=== PATIENT | female | born 1945 | race Caucasian/White ===

== ENCOUNTER 2019-12-26 07:42 | Day surgery (SDC) | payer MEDICARE, OTHER ==
[~2019-12-26] VITALS: Ht 152.4 cm; Wt 82.5 kg
[2019-12-26] VITALS (7 sets, daily range): BP systolic 131–162; BP diastolic 62–85
[2019-12-26] MEDS ORDERED: diphenhydrAMINE 25mg capsule PO ONE (08:45)
[2019-12-26] MEDS ORDERED: acetaminophen 325mg tablet PO ONE (08:45)
[2019-12-26] MEDS ORDERED: dexamethasone sod phosphate 4mg/ml inj. IV ONE (08:45)
== END 2019-12-26 14:00 | disposition home or self-care (01) ==
LOC: MED 3N 07:42 → U 07:42
PROVIDERS: ATTEND Internal Medicine Hematology & Oncology
DX: D64.9 Anemia, unspecified (principal)
CPT/HCPCS: 36415; 36430; 86885; 86900; 86901; 86920; 86945; J1100; P9016; Q0163

== ENCOUNTER 2020-02-09 08:11 | Observation (INO) | payer MEDICARE, OTHER ==
[2020-01-30 16:41] LABS: BASOPHILS % (AUTO) 0.6 % (0-1); EOSINOPHILS # (AUTO) 0.2 X10'3 (0-0.9); LYMPHOCYTES # (AUTO) 1.3 X10'3 (1.1-4.8); LYMPHOCYTES % (AUTO) 24.1 % (21-51); MEAN CORPUSCULAR HEMOGLOBIN 30.2 PG (27.0-31.0); MEAN CORPUSCULAR HGB CONC 32.8 g/dL (33.0-36.5); MEAN CORPUSCULAR VOLUME 91.8 FL (78-98); MEAN PLATELET VOLUME 8.4 FL (7.4-10.4); MONOCYTES # (AUTO) 0.5 X10'3 (0-0.9); MONOCYTES % (AUTO) 10.3 % (2-12); NEUTROPHILS # (AUTO) 3.3 X10'3 (1.8-7.7); PRE OP HEMATOCRIT 32.9 % (35.0-45.0); PRE OP PLATELET COUNT 201 X10'3 (140-440); RED BLOOD COUNT 3.58 X10'6 (4.20-5.60); RED CELL DISTRIBUTION WIDTH 14.5 % (11.5-14.5)
[2020-01-30 16:46] LABS: PRE OP HEMOGLOBIN 10.8 g/dL (12.0-16.0)
[2020-01-30 16:57] LABS: ALBUMIN 3.7 G/DL (3.4-5.0); ALBUMIN/GLOBULIN RATIO 1.1 (1.1-1.5); ALKALINE PHOSPHATASE 150 IU/L (46-116); BLOOD UREA NITROGEN 14 MG/DL (7-18); BUN/CREATININE RATIO 13.7 (6.6-38.0); CALCIUM 9.1 MG/DL (8.5-10.1); CHLORIDE 107 MMOL/L (99-107); CREATININE 1.02 MG/DL (0.40-0.90); PRE OP ALT 30 U/L (30-65); PRE OP ANION GAP 6 (8-16); PRE OP AST 22 U/L (10-37); PRE OP BILIRUB, TOTAL 0.3 MG/DL (0.0-1.0); PRE OP GLUCOSE 100 MG/DL (70-104); PRE OP POTASSIUM 4.1 MMOL/L (3.4-5.1); PRE OP SODIUM 143 MMOL/L (135-145); TOTAL CARBON DIOXIDE 29.6 MMOL/L (24-32); eGFR 53 ML/MIN
[2020-02-09] VITALS (17 sets, daily range): BP systolic 129–219; BP diastolic 53–92
[~2020-02-09] VITALS: Ht 152.4 cm; Wt 83.3 kg
[~2020-02-09 08:11] MED LIST: ACET-1025 PO; ALBU8.5H8 INH; AMLO5TAB16 PO; ASPI-611 PO; BUPR300T53 PO; CARV3.12 PO; CLOP75TA15 PO; DOCUMENT DATE & TIME OF BETA-BLOCKER PO ONE; ESTR10TA9 PO; HYDR-4383 PO; HYDR200T80 PO; IRBE300T18 PO; LEVO100T PO; LIDOcaine 2% (20mg/ml) 5ml vial ONE; MESSAGE TO NURSING PO ONE; METF500T PO; PHEN99.5 PO; PRAV20TA4 PO; TIZA4TAB11 PO; ZOLP5TAB2 PO; albuterol 2.5 MG/3 ML nebule NEB ONE; cefazolin/dext.iso 2gm/50ml 50 ML IV ONE; famotidine 20mg tablet PO ONE; fentaNYL/PF 50MCG/1 ML 2ML syringe ONE; midazolam 2 mg/2 ml injection ONE; propofol inj 20 ML IV ONE; ringers solution, lacted 1,000 ML IV SCH
[2020-02-09] MEDS ORDERED: vancomycin/NS 1 GM ADD-VANTAGE 250 ML IV ONE (09:30)
[2020-02-09] MEDS ORDERED: bacitracin 15gm ointment TP ONE (10:06)
[2020-02-09] MEDS ORDERED: BUPIVAcaine/PF 2.5 mg/ml (0.25%) 30ml vial ONE (10:06)
[2020-02-09] MEDS ORDERED: ringers solution, lacted 1,000 ML IV SCH (10:24)
[2020-02-09] MEDS ORDERED: proCHLORperazine 10 MG/2 ml inj IV PRN (10:25)
[2020-02-09] MEDS ORDERED: fentaNYL/PF 50MCG/1 ML 2ML syringe IV PRN ×2 (10:25)
[2020-02-09] MEDS ORDERED: HYDROmorphone inj. 0.5 MG/0.5 ML DISP.SYRIN IV PRN ×2 (10:25)
[2020-02-09] MEDS ORDERED: ondansetron/PF 4mg/2ml inj IV PRN (10:25)
[2020-02-09] MEDS ORDERED: meperidine/PF 25mg/ml syringe IV PRN (10:25)
[2020-02-09] MEDS ORDERED: acetaminophen 1,000mg/100ml IV 100 ML IV PRN (10:25)
[2020-02-09] MEDS ORDERED: sevoflurane 250ml liquid IH ONE (10:31)
[2020-02-09] MEDS ORDERED: fentaNYL/PF 50MCG/1 ML 2ML syringe ONE (10:39)
[2020-02-09] MEDS ORDERED: ondansetron/PF 4mg/2ml inj ONE (10:53)
[2020-02-09] MEDS ORDERED: midazolam 2 mg/2 ml injection ONE (10:53)
[2020-02-09] MEDS ORDERED: LIDOcaine 2% (20mg/ml) 5ml vial ONE (10:53)
[2020-02-09] MEDS ORDERED: dexamethasone sod phosphate 4mg/ml inj. ONE (10:53)
[2020-02-09] MEDS ORDERED: propofol inj 20 ML IV ONE (10:53)
[2020-02-09] MEDS ORDERED: 0.9 % SODIUM CHLORIDE 10 ML VIAL ONE (11:00)
[2020-02-09] MEDS ORDERED: vancomycin 1,000mg inj ONE (11:00)
[2020-02-09] MEDS ORDERED: povidone-iodine 10% topical ointment 28.4gm TP ONE (11:50)
--- NOTE | 2020-02-09 12:06 | NUR ---
Received from OR via , accompanied by Anesthesiologist DR VILA and report given by Anesthesiolgist. AWAKENS TO VOICE. VITALS STABLE. DRESSING WITH SM AMNT RED DRAINAGE NOTED. YESSICA PAIN.
[2020-02-09] MEDS ORDERED: acetaminophen 325mg tablet PO PRN (12:50)
[2020-02-09] MEDS ORDERED: phenazopyridine 100mg tablet PO PRN (12:50)
[2020-02-09] MEDS ORDERED: HYDROcodone/acetaminophen 5mg/325mg tablet PO PRN ×2 (12:50→14:05)
[2020-02-09] MEDS ORDERED: albuterol 2.5 MG/3 ML nebule NEB PRN (12:50)
--- NOTE | 2020-02-09 12:59 | NUR ---
received report from Augustus SANCHEZ
--- NOTE | 2020-02-09 13:06 | NUR ---
Report called to receiving nurse. Transferred via [facility] . Special Issues communicated to receiving nurse. AWAKE AND ORIENTED. VITALS STABLE. DRESSING REMAINS THE SAME. YESSICA PAIN. TO ORTHOP RM 4020S AT THIS TIME.
[2020-02-09] MEDS: normal saline 1000ml 1,000 ML IV SCH (15:08)
[2020-02-09] MEDS: HYDROcodone/acetaminophen 5mg/325mg tablet PO PRN ×2 (15:47→22:05)
--- NOTE | 2020-02-09 18:53 | NUR ---
Problems reprioritized. Patient report given, questions answered & plan of care reviewed with Pat RN.
[2020-02-09] MEDS: hydroxychloroquine 200mg tablet PO SCH (20:00)
[2020-02-09] MEDS: carVEDilol 3.125mg tablet PO SCH (20:00)
[2020-02-09] MEDS ORDERED: metFORMIN 500mg tablet PO SCH (21:00)
[2020-02-09] MEDS ORDERED: tizanidine 4mg tablet PO SCH (21:00)
[2020-02-09] MEDS ORDERED: zolpidem 5mg tablet PO SCH (21:00)
--- NOTE | 2020-02-09 21:00 | NUR ---
states she is a difficult start for IV's; refuses to have PIV replaced; states she was told to bring her meds in; states she already took the coreg & plaquenel; denies she has any other meds with her; educated she is not to take her home meds when admitted to the hospital
[2020-02-10 02:00] VITALS: BP 134/65
[2020-02-10] MEDS: normal saline 1000ml 1,000 ML IV SCH ×3 (04:09→10:35)
[2020-02-10] MEDS: HYDROcodone/acetaminophen 5mg/325mg tablet PO PRN ×2 (04:19→10:41)
[2020-02-10 06:00] VITALS: BP 99/37
[2020-02-10 06:32] LABS: BASOPHILS % (AUTO) 0.2 % (0-1); EOSINOPHILS % (AUTO) 0.1 % (0-6); HEMATOCRIT 31.1 % (35.0-45.0); HEMOGLOBIN 10.3 g/dl (12.0-16.0); LYMPHOCYTES # (AUTO) 1.3 X10'3 (1.1-4.8); LYMPHOCYTES % (AUTO) 17.4 % (21-51); MEAN CORPUSCULAR HGB CONC 33.1 g/dL (33.0-36.5); MEAN CORPUSCULAR VOLUME 93.7 FL (78-98); MEAN PLATELET VOLUME 8.5 FL (7.4-10.4); MONOCYTES # (AUTO) 0.9 X10'3 (0-0.9); MONOCYTES % (AUTO) 11.5 % (2-12); NEUTROPHILS # (AUTO) 5.4 X10'3 (1.8-7.7); NEUTROPHILS % (AUTO) 70.8 % (42-75); PLATELET COUNT 184 X10'3 (140-440); RED BLOOD COUNT 3.32 X10'6 (4.20-5.60); RED CELL DISTRIBUTION WIDTH 14.5 % (11.5-14.5); WHITE BLOOD COUNT 7.7 X10'3 (4.5-11.0)
[2020-02-10 06:43] LABS: ALBUMIN 3.3 G/DL (3.4-5.0); ANION GAP 7 (8-16); BLOOD UREA NITROGEN 17 MG/DL (7-18); BUN/CREATININE RATIO 11.6 (6.6-38.0); CALCIUM 8.9 MG/DL (8.5-10.1); CHLORIDE 107 MMOL/L (99-107); CREATININE 1.46 MG/DL (0.40-0.90); GLUCOSE 102 MG/DL (70-104); POTASSIUM 4.1 MMOL/L (3.5-5.1); SODIUM 142 MMOL/L (135-145); TOTAL CARBON DIOXIDE 27.8 MMOL/L (24-32); eGFR 35 ML/MIN
[2020-02-10 06:53] LABS: HEMOGLOBIN A1C 5.6 % (4.5-6.2)
[2020-02-10] MEDS ORDERED: clopidogrel 75mg tablet PO SCH (08:00)
[2020-02-10] MEDS ORDERED: atorvastatin 10mg tablet PO SCH (08:00)
[2020-02-10] MEDS ORDERED: buPROPion SR 150mg tablet PO SCH (08:00)
[2020-02-10] MEDS ORDERED: aspirin 81mg tablet.DR PO SCH (08:00)
[2020-02-10] MEDS ORDERED: amLODIPine 5mg tablet PO SCH (08:00)
[2020-02-10] MEDS ORDERED: levoTHYROXINE 100mcg tablet PO SCH (08:00)
[2020-02-10] MEDS ORDERED: losartan 50mg tablet PO SCH (08:00)
--- NOTE | 2020-02-10 09:55 | NUR ---
DM consult: Pt with A1c 5.6%, DM education not warranted at this time. Will continue to follow. Addendum: 02/10/20 at [address] Amended: Links added.
[2020-02-10] MEDS: carVEDilol 3.125mg tablet PO SCH (10:34)
[2020-02-10] MEDS: hydroxychloroquine 200mg tablet PO SCH (10:37)
[2020-02-10 10:42] VITALS: BP 123/66
[2020-02-12] MEDS ORDERED: ESTRADIOL 10 MCG VG SCH (08:00)
== END 2020-02-10 13:15 | disposition home or self-care (01) ==
LOC: PAS 08:11 → ORTHO 4S 12:32
PROVIDERS: ADMIT Podiatrist Foot & Ankle Surgery; ATTEND Podiatrist Foot & Ankle Surgery
DX: Z03.818 Encounter for observation for suspected exposure to other biological agents ruled out (principal); M20.22 Hallux rigidus, left foot; M20.12 Hallux valgus (acquired), left foot; M19.072 Primary osteoarthritis, left ankle and foot
CPT/HCPCS: 28750; 36415; 73620; 76000; 80048; 80053; 82948; 83036; 85025; A6223; C1713; G0378; J1100; J2001; J2250; J2405; J2704; J3010; J3370; J3490; J7030; U0003; A4215; A4618; A6449; A7000; J7120

== ENCOUNTER 2021-09-19 11:23 | Emergency (ER) | payer MEDICARE, OTHER ==
[~2021-09-19] VITALS: Ht 152.4 cm; Wt 81.0 kg
[~2021-09-19 11:23] MED LIST changes: +ALBU8.5H17 INH; -ALBU8.5H8 INH; -DOCUMENT DATE & TIME OF BETA-BLOCKER PO ONE; -LIDOcaine 2% (20mg/ml) 5ml vial ONE; -MESSAGE TO NURSING PO ONE; -albuterol 2.5 MG/3 ML nebule NEB ONE; -cefazolin/dext.iso 2gm/50ml 50 ML IV ONE; -famotidine 20mg tablet PO ONE; -fentaNYL/PF 50MCG/1 ML 2ML syringe ONE; -midazolam 2 mg/2 ml injection ONE; -propofol inj 20 ML IV ONE; -ringers solution, lacted 1,000 ML IV SCH
[2021-09-19 13:06] VITALS: BP 145/72
--- NOTE | 2021-09-19 17:29 | NUR ---
STORAGE MANAGEMENT CONSULTANT TOLD ABOUT STUDY CURENTLY IN ER BED 6. WILL PULL PT TO FAST TRACK TO DO STUDY
[2021-09-19 18:45] LABS: BASOPHILS % (AUTO) 0.7 % (0-1); EOSINOPHILS # (AUTO) 0.1 X10'3 (0-0.9); EOSINOPHILS % (AUTO) 2.2 % (0-6); HEMOGLOBIN 8.7 g/dl (12.0-16.0); LYMPHOCYTES # (AUTO) 1.1 X10'3 (1.1-4.8); LYMPHOCYTES % (AUTO) 17.9 % (21-51); MEAN CORPUSCULAR HEMOGLOBIN 28.3 PG (27.0-31.0); MEAN CORPUSCULAR HGB CONC 33.6 g/dL (33.0-36.5); MEAN CORPUSCULAR VOLUME 84.4 FL (78-98); MEAN PLATELET VOLUME 7.3 FL (7.4-10.4); MONOCYTES # (AUTO) 0.7 X10'3 (0-0.9); MONOCYTES % (AUTO) 10.4 % (2-12); NEUTROPHILS # (AUTO) 4.4 X10'3 (1.8-7.7); NEUTROPHILS % (AUTO) 68.8 % (42-75); PLATELET COUNT 311 X10'3 (140-440); RED BLOOD COUNT 3.08 X10'6 (4.20-5.60); RED CELL DISTRIBUTION WIDTH 16.4 % (11.5-14.5); WHITE BLOOD COUNT 6.3 X10'3 (4.5-11.0)
[2021-09-19 19:09] LABS: ALANINE AMINOTRANSFERASE 55 U/L (12-78); ALBUMIN 3.6 G/DL (3.4-5.0); ALBUMIN/GLOBULIN RATIO 0.9 (1.1-1.5); ALKALINE PHOSPHATASE 170 IU/L (46-116); ANION GAP 8 (8-16); ASPARTATE AMINO TRANSFERASE 48 U/L (10-37); BILIRUBIN,TOTAL 0.4 MG/DL (0.1-1.0); BLOOD UREA NITROGEN 19 MG/DL (7-18); BUN/CREATININE RATIO 17.8 (6.6-38.0); CHLORIDE 100 MMOL/L (99-107); CREATININE 1.07 MG/DL (0.40-0.90); GLUCOSE 93 MG/DL (70-104); POTASSIUM 4.5 MMOL/L (3.5-5.1); SODIUM 136 MMOL/L (135-145); TOTAL CARBON DIOXIDE 27.8 MMOL/L (24-32); TOTAL PROTEIN 7.4 G/DL (6.4-8.2); eGFR 50 ML/MIN
[2021-09-19] MEDS ORDERED: HYDROcodone/acetaminophen 10/325mg tab PO ONE (19:45)
[2021-09-19] MEDS ORDERED: orphenadrine citrate 60mg/2ml inj. IM ONE (19:45)
== END 2021-09-19 20:42 | disposition home or self-care (01) ==
LOC: ER 11:23
DX: G89.29 Other chronic pain (principal); M54.50 Low back pain, unspecified; M62.838 Other muscle spasm; I87.2 Venous insufficiency (chronic) (peripheral); M79.7 Fibromyalgia; M19.90 Unspecified osteoarthritis, unspecified site; Z98.890 Other specified postprocedural states; Z88.0 Allergy status to penicillin; Z88.8 Allergy status to other drugs, medicaments and biological substances; Z79.82 Long term (current) use of aspirin; Z79.899 Other long term (current) drug therapy
CPT/HCPCS: 36415; 72131; 80053; 85025; 93971; 96372; 99284; J2360

== ENCOUNTER 2023-02-06 20:41 | Emergency (ER) | payer MEDICARE, OTHER ==
[~2023-02-06] VITALS: Ht 152.4 cm; Wt 72.2 kg
[~2023-02-06 20:41] MED LIST changes: -ACET-1025 PO; -AMLO5TAB16 PO; -ASPI-611 PO; +ASPI81TA52 PO; -CARV3.12 PO; -CLOP75TA15 PO; -HYDR200T80 PO; -METF500T PO; -PHEN99.5 PO; +TIZA2CAP7 PO; -TIZA4TAB11 PO
[2023-02-06 21:41] LABS: BASOPHILS % (AUTO) 0.5 % (0-1); EOSINOPHILS # (AUTO) 0.2 X10'3 (0-0.9); EOSINOPHILS % (AUTO) 2.8 % (0-6); HEMATOCRIT 23.3 % (35.0-45.0); HEMOGLOBIN 7.5 g/dl (12.0-16.0); LYMPHOCYTES # (AUTO) 1.2 X10'3 (1.1-4.8); LYMPHOCYTES % (AUTO) 13.6 % (21-51); MEAN CORPUSCULAR HEMOGLOBIN 27.2 PG (27.0-31.0); MEAN CORPUSCULAR HGB CONC 32.1 g/dL (33.0-36.5); MEAN CORPUSCULAR VOLUME 84.8 FL (78-98); MEAN PLATELET VOLUME 7.7 FL (7.4-10.4); MONOCYTES # (AUTO) 0.7 X10'3 (0-0.9); NEUTROPHILS # (AUTO) 6.4 X10'3 (1.8-7.7); NEUTROPHILS % (AUTO) 75.1 % (42-75); PLATELET COUNT 270 X10'3 (140-440); RED BLOOD COUNT 2.74 X10'6 (4.20-5.60); RED CELL DISTRIBUTION WIDTH 16.8 % (11.5-14.5); WHITE BLOOD COUNT 8.5 X10'3 (4.5-11.0)
[2023-02-06 21:52] LABS: ALANINE AMINOTRANSFERASE 22 U/L (12-78); ALBUMIN/GLOBULIN RATIO 0.8 (1.1-1.5); ALKALINE PHOSPHATASE 134 IU/L (46-116); ANION GAP 6 (8-16); ASPARTATE AMINO TRANSFERASE 33 U/L (10-37); BILIRUBIN,TOTAL 0.4 MG/DL (0.1-1.0); BLOOD UREA NITROGEN 35 MG/DL (7-18); BUN/CREATININE RATIO 29.7 (10.0-20.0); CALCIUM 8.6 MG/DL (8.5-10.1); CHLORIDE 105 MMOL/L (99-107); CREATININE 1.18 MG/DL (0.40-0.90); GLUCOSE 106 MG/DL (70-104); POTASSIUM 4.6 MMOL/L (3.5-5.1); SODIUM 143 MMOL/L (135-145); TOTAL CARBON DIOXIDE 31.7 MMOL/L (24-32); TOTAL PROTEIN 6.8 G/DL (6.4-8.2); eGFR 44 ML/MIN
[2023-02-06 21:53] VITALS: BP 144/110
[2023-02-06] MEDS ORDERED: oxymetazoline 15 ML nasal spray NS ONE (22:10)
--- NOTE | 2023-02-06 22:41 | NUR ---
ENT BOX IN ROOM.
[2023-02-06] MEDS ORDERED: LIDOcaine 2% 10ml TOPICAL JELLY (Urojet) MM ONE ×2 (23:30→23:40)
[2023-02-06] MEDS ORDERED: LidoCAINE 2% Topical Jelly 11mL syringe MM ONE ×2 (23:40)
== END 2023-02-07 00:36 | disposition left against medical advice (07) ==
LOC: ER 20:41
DX: I21.4 Non-ST elevation (NSTEMI) myocardial infarction (principal); I50.9 Heart failure, unspecified; R04.0 Epistaxis; M19.90 Unspecified osteoarthritis, unspecified site; F17.200 Nicotine dependence, unspecified, uncomplicated; Z88.0 Allergy status to penicillin; Z88.5 Allergy status to narcotic agent
CPT/HCPCS: 36415; 71045; 80053; 83880; 84484; 85025; 93005; 99285